=== PATIENT | male | born 1950 | race Caucasian/White ===

== ENCOUNTER → 2019-09-17 09:34 | Outpatient (BNVA) | payer MEDICARE, BC, SELFPAY | PROVIDERS: Referring Provider Internal Medicine Nephrology; Visit Provider Psychiatry & Neurology Neurology | DX: G96.8 Other specified disorders of central nervous system (principal) | CPT/HCPCS: 99204 ==

== ENCOUNTER → 2019-12-17 08:47 | Outpatient (BNVA) | payer MEDICARE, BC, SELFPAY | PROVIDERS: Visit Provider Psychiatry & Neurology Neurology | DX: G96.8 Other specified disorders of central nervous system (principal) | CPT/HCPCS: 99214 ==

== ENCOUNTER → 2020-01-14 08:38 | Outpatient (BNVA) | payer MEDICARE, BC, SELFPAY | PROVIDERS: Visit Provider Psychiatry & Neurology Neurology | DX: M48.061 Spinal stenosis, lumbar region without neurogenic claudication (principal); I12.9 Hypertensive chronic kidney disease with stage 1 through stage 4 chronic kidney disease, or unspecified chronic kidney disease; N18.3 Chronic kidney disease, stage 3 (moderate) | CPT/HCPCS: 99213 ==

== ENCOUNTER 2020-03-23 12:26 | Outpatient (CLI) | payer MEDICARE, BC, SELFPAY ==
[2020-03-23 12:48] VITALS: BP 161/67; PULSE 61; RESP 20; TEMP 36.5; O2SAT 98
--- NOTE | 2020-03-23 13:30 | PDOC.PAIN_ITS ---
Pain Clinic Procedure Note Procedure Note Procedure Note: Lumbar Epidural Steroid Injection Procedure Note Pre-operative diagnosis: lumbar radiculopathy Post-operative diagnosis: same as above COMMENTS: patient was evaluated by [place] in our pain clinic with axial back pain with radiation down bilateral legs, posterior buttock and thighs. MRI L spine showed degenerative spondyolisthesis at L4-5. Patient is referred for a trial of LESI. ROSSY CARVAJAL has been referred to the [facility] for lumbar epidural steroid injection. The patient was greeted by the nurse who verified patients name and . Patient was then taken to the fluoroscopy suite. The patient was interviewed and the medial record reviewed. There were no medical, pharmacologic, radiographic, or other structural contraindications to attempting fluoroscopically guided lumbar epidural steroid injection. Risks and expected side effects as well as potential benefits of the procedure were reviewed and voiced concerns expressed. The patient consent form was signed and witnessed. Standard patient time-out procedure was performed. The patient was placed in the prone position on the fluoroscopy table and automated blood pressure cuff and pulse oximeter applied. The skin entry point f or entering/approaching the epidural space by a L5-S1 and marked. Following thorough chlorhexadine preparation of the skin and draping and 1% lidocaine infiltration of the skin entry point and subcutaneous tissues, a 18 gauge Touhy needle was placed under fluoroscopic guidance and with loss of resistance technique into the epidural space. Needle tip placement and depth were aided and confirmed by fluoroscopy. There was no paresthesia or return of blood or CSF through the needle. 1 cc's of Omnipaque 240 was injected with clear epidural spread confirmed with fluoroscopy. 80mg depomedrol was injected. There was not any unusual discomfort expressed by ROSSY CARVAJAL. Patient's vital signs were stable throughout the procedure and were as recorded in nursing records. Follow up plans and appointments were discussed with patient. Post procedure instruction was given as documented in nursing records and having met discharge criteria and was discharged from the [facility]. COMMENTS: If this procedure is helpful, it can be completed up to 3 times per 12 months. I performed the entire procedure. Lorne Richards MD Pain Management
[2020-03-23 13:33] VITALS: BP 163/68; PULSE 67; RESP 15; O2SAT 98
[2020-03-23] MEDS: methylPREDNISolone ACETATE 80 MG/ML VIAL (13:48)
[2020-03-23] MEDS: Omnipaque 240 MG/ML 50 ML BTL IJ (13:48)
== END 2020-03-23 12:46 ==
PROVIDERS: Visit Provider Internal Medicine
DX: M54.16 Radiculopathy, lumbar region (principal)
CPT/HCPCS: 62323; J1040; Q9967

== ENCOUNTER → 2020-04-26 12:42 | Outpatient (BNVA) | payer MEDICARE, BC, SELFPAY | PROVIDERS: Visit Provider Psychiatry & Neurology Neurology | DX: M48.061 Spinal stenosis, lumbar region without neurogenic claudication (principal) | CPT/HCPCS: 99213 ==

== ENCOUNTER 2020-06-22 11:38 | Outpatient (CLI) | payer MEDICARE, BC, SELFPAY ==
--- NOTE | 2020-06-22 12:11 | PDOC.PAIN_ITS ---
Pain Clinic Procedure Note Procedure Note Procedure Note: Lumbar Epidural Steroid Injection Procedure Note Pre-operative diagnosis: lumbar spinal stenosis with neurogenic claudication Post-operative diagnosis: same as above COMMENTS:patient benefited from prior L5-S1 LESI which resulted in complete resolution of his back pain for 3-4 weeks and significant improvement of his radiating leg symptoms, however, after 4 weeks, pain started to slowly return, and it is back to baseline. He is here for a repeat injection. He was recently seen by his neurologist and at present time, patient is not interested in lumbar spine surgery, not interested in oral medications such as low dose duloxetine. ROSSY CARVAJAL has been referred to the [facility] for lumbar epidural steroid injection. The patient was greeted by the nurse who verified patients name and . Patient was then taken to the fluoroscopy suite. The patient was interviewed and the medial record reviewed. There were no medical, pharmacologic, radiographic, or other structural contraindications to a ttempting fluoroscopically guided lumbar epidural steroid injection. Risks and expected side effects as well as potential benefits of the procedure were reviewed and voiced concerns expressed. The patient consent form was signed and witnessed. Standard patient time-out procedure was performed. The patient was placed in the prone position on the fluoroscopy table and automated blood pressure cuff and pulse oximeter applied. The skin entry point for entering/approaching the epidural space by a L5-S1 and marked. Following thorough chlorhexadine preparation of the skin and draping and 1% lidocaine infiltration of the skin entry point and subcutaneous tissues, a 18 gauge Touhy needle was placed under fluoroscopic guidance and with loss of resistance te chnique into the epidural space. Needle tip placement and depth were aided and confirmed by fluoroscopy. There was no paresthesia or return of blood or CSF through the needle. 1 cc's of Omnipaque 240 was injected with clear epidural spread confirmed with fluoroscopy. 80mg depomedrol was injected, this is followed by 0.5cc of preservative free 1% lidocaine and 0.5cc of preservative free normal saline. There was not any unusual discomfort expressed by ROSSY CARVAJAL. Patient's vital signs were stable throughout the procedure and were as recorded in nursing records. Follow up plans and appointments were discussed with patient. Post procedure instruction was given as documented in nursing records and having met discharge criteria and was discharged from the [facility]. COMMENTS: If this procedure is helpful, it can be completed up to 3 times per 12 months. Lorne Richards MD Pain Management
[2020-06-22 12:14] VITALS: BP 135/61; PULSE 56; RESP 18; TEMP 36.5; O2SAT 98
--- NOTE | 2020-06-22 12:44 | DI.RAD_ITS ---
EXAM: XR PAIN CLINIC LUMBAR SP 2V CLINICAL HISTORY: Dx:Lumbar Radiculopathy. TECHNIQUE: Fluoroscopy was provided for the referring physician for guidance with performing injecti on procedure. COMPARISON: No exams were available for comparison FINDINGS: Please see procedure note for details. Fluoro time: 19.4 sec, 6.72 mGy RADIATION DOSE DELIVERED:
[2020-06-22 12:54] VITALS: BP 150/75; PULSE 68; RESP 17; O2SAT 98
[2020-06-22] MEDS: Omnipaque 240 MG/ML 50 ML BTL IJ (12:57)
[2020-06-22] MEDS: methylPREDNISolone ACETATE 80 MG/ML VIAL IJ (12:57)
== END 2020-06-22 11:58 ==
PROVIDERS: Visit Provider Internal Medicine
DX: M48.062 Spinal stenosis, lumbar region with neurogenic claudication (principal)
CPT/HCPCS: 62323; 72100; J1040; Q9967

== ENCOUNTER 2022-01-10 10:55 | Outpatient (CLI) | payer MEDICARE, BC, SELFPAY ==
--- NOTE | 2022-01-10 10:15 | DI.RAD_ITS ---
Exam(s) XR SHOULDER LT COMPLETE 2+V EXAM: XR SHOULDER LT COMPLETE 2+V CLINICAL HISTORY: left shoulder pain. TECHNIQUE: 2D digital imaging was performed of the left shoulder. Two images were obtained. AP and axillary views were obtained. COMPARISON: No exams were available for comparison FINDINGS: BONES: No acute fracture is present. No bony destructive lesion is seen. JOINTS: No dislocation present. SOFT TISSUE: Normal. IMPRESSION: Unremarkable radiographs of the left shoulder. DATA REPOSITORY: RADIATION DOSE DELIVERED:
== END 2022-01-10 10:56 | disposition home or self-care (01) ==
LOC: DIORS 10:55
PROVIDERS: PCP Family Medicine; Referring Provider Family Medicine; Visit Provider Student in an Organized Health Care Education/Training Program
DX: M25.512 Pain in left shoulder (principal); M75.52 Bursitis of left shoulder; M75.42 Impingement syndrome of left shoulder
CPT/HCPCS: 20610; 99203; 99213; 73030; J1030